=== PATIENT | male | born 1990 | race Caucasian/White ===

== ENCOUNTER → 2016-11-06 | Outpatient (CLI) | payer MEDICAID ==
[~2016-11-06] MED LIST: KEFL500C; No Historical Meds; VICO5TAB
== END ==
LOC: M OUTALCOH 12:53
PROVIDERS: ATTEND Psychiatry & Neurology Psychiatry
DX: Z03.89 Encounter for observation for other suspected diseases and conditions ruled out (principal)

== ENCOUNTER → 2017-01-29 | Outpatient (CLI) | payer MEDICAID, OTHER ==
--- NOTE | 2017-01-29 14:50 | REP ---
LEFT KNEE, FIVE VIEWS: There is no evidence of an acute fracture, dislocation or intrinsic bone disease. IMPRESSION: No fracture or dislocation. Signed by Ramiro Rudolph MD 01/29/2017 04:43 P
--- NOTE | 2017-01-29 14:52 | REP ---
RIGHT ANKLE, FOUR VIEWS: There is no evidence of an acute fracture, dislocation or intrinsic bone disease. There is lateral soft tissue swelling. The ankle mortise is anatomic. IMPRESSION: No fracture or dislocation. Signed by Ramiro Rudolph MD 01/29/2017 04:43 P
--- NOTE | 2017-01-29 14:57 | REP ---
RIGHT LOWER LEG, AP AND LATERAL: There is no evidence of an acute fracture, dislocation or intrinsic bone disease. IMPRESSION: No fracture or dislocation. Signed by Ramiro Rudolph MD 01/29/2017 04:44 P
--- NOTE | 2017-01-29 14:57 | REP ---
RIGHT FOOT, FOUR VIEWS: HISTORY: Pain. There is no acute fracture or dislocation. The joint spaces are normal in appearance. IMPRESSION: There is no acute fracture or dislocation. Signed by Jaime Barger MD 01/29/2017 03:03 P
== END ==
LOC: M LRY 13:17
PROVIDERS: ATTEND Physician Assistant
DX: M25.561 Pain in right knee (principal)

== ENCOUNTER 2017-08-21 19:21 | Emergency (ER) | payer MEDICAID, OTHER ==
[~2017-08-21] VITALS: Ht 180.3 cm; Wt 72.7 kg
[2017-08-21 19:24] VITALS: BP 134/86
[2017-08-21] MEDS ORDERED: NORCO, ANEXSIA 5/325MG TABLET (HYDROcodone/ACETAMINOPHEN) PO ONE (19:45)
[2017-08-21] MEDS ORDERED: NORCO 5/325MG TABLET (BULK FOR ED) PO ONE (20:00)
[2017-08-21] MEDS ORDERED: NORCOTAB PO (20:04)
--- NOTE | 2017-08-22 14:05 | REP ---
RIGHT SHOULDER: Three views of the right shoulder are performed. No fracture is seen. There is, however, disruption at the acromioclavicular joint. The distal clavicle is elevated above the acromion. 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 Signed by Ramiro Rudolph MD 08/22/2017 05:38 P
== END 2017-08-21 20:12 | disposition home or self-care (01) ==
LOC: M ED 19:51
DX: S43.51XA Sprain of right acromioclavicular joint, initial encounter (principal); W19.XXXA Unspecified fall, initial encounter; Y92.099 Unspecified place in other non-institutional residence as the place of occurrence of the external cause; Y93.9 Activity, unspecified; Y99.9 Unspecified external cause status; F17.200 Nicotine dependence, unspecified, uncomplicated

== ENCOUNTER 2017-11-25 15:55 | Emergency (ER) | payer SELFPAY, OTHER ==
[2017-11-25 16:39] LABS: MEAN CORPUSCULAR HEMOGLOBIN 30.5 pg (27.0-33.0); MEAN CORPUSCULAR VOLUME 89.6 fl (80.0-96.0); PLATELET COUNT, AUTOMATED 379 10^3/uL (150-450); RED BLOOD COUNT 5.84 10^6/uL (4.30-6.10); RED CELL DISTRIBUTION WIDTH 13.4 % (11.5-14.5)
[2017-11-25 16:44] LABS: HEMATOCRIT 52.3 % (42.0-52.0); HEMOGLOBIN 17.8 g/dl (14.0-18.0); SUSPECT SAMPLE POS FLAG
[2017-11-25 16:56] LABS: AMPHETAMINES LEVEL URINE POSITIVE (NEGATIVE); BARBITURATES URINE NEGATIVE (NEGATIVE); BENZODIAZEPINES URINE NEGATIVE (NEGATIVE); CANNABINOIDS URINE POSITIVE (NEGATIVE); COCAINE METABOLITE URINE NEGATIVE (NEGATIVE); METHADONE URINE NEGATIVE (NEGATIVE); OPIATES URINE NEGATIVE (NEGATIVE); PHENCYCLIDINE URINE NEGATIVE (NEGATIVE)
[2017-11-25 17:05] LABS: ALBUMIN 4.6 GM/DL (3.2-5.2); ALBUMIN/GLOBULIN RATIO 1.28 (1.00-1.93); ALKALINE PHOSPHATASE 103 U/L (45-117); ALT/SGPT 22 U/L (12-78); ANION GAP 7 MEQ/L (8-16); AST/SGOT 10 U/L (7-37); BILIRUBIN,DIRECT 0.3 MG/DL (0.0-0.2); BILIRUBIN,TOTAL 1.4 MG/DL (0.2-1.0); BLOOD UREA NITROGEN 3 MG/DL (7-18); CALCIUM LEVEL 8.8 MG/DL (8.5-10.1); CARBON DIOXIDE LEVEL 30 MEQ/L (21-32); CHLORIDE LEVEL 107 MEQ/L (98-107); CREATININE FOR GFR 0.82 MG/DL (0.70-1.30); ETHYL ALCOHOL (ETHANOL) 0.152 % (0.000-0.010); GLOMERULAR FILTRATION RATE > 60.0 (>60); GLUCOSE, FASTING 103 MG/DL (70-100); POTASSIUM SERUM 3.7 MEQ/L (3.5-5.1); SALICYLATE LEVEL 2.3 MG/DL (5.0-30.0); SODIUM LEVEL 144 MEQ/L (136-145); THYROID STIMULATING HORMONE 0.694 uIU/ML (0.358-3.740); TOTAL PROTEIN 8.2 GM/DL (6.4-8.2)
[2017-11-25 17:16] LABS: ACETAMINOPHEN LEVEL < 2.0 UG/ML (10.0-30.0)
== END 2017-11-25 18:46 | disposition home or self-care (01) ==
LOC: M ED 15:55
DX: F10.220 Alcohol dependence with intoxication, uncomplicated (principal); Y90.0 Blood alcohol level of less than 20 mg/100 ml
CPT/HCPCS: G0480

== ENCOUNTER 2018-07-26 19:57 | Emergency (ER) | payer MEDICAID, SELFPAY ==
[~2018-07-26] VITALS: Ht 180.3 cm; Wt 77.6 kg
[~2018-07-26 19:57] MED LIST changes: +NORCOTAB PO
[2018-07-26] MEDS: NALOXONE INJ 0.4 MG/1 ML VIAL (J2310) IV STA ×2 (20:11→20:15)
[2018-07-26 21:05] VITALS: BP 128/70
== END 2018-07-26 21:07 | disposition home or self-care (01) ==
LOC: M ED 19:57 → EDBD 19:57 → M ED 21:07
DX: T40.1X1A Poisoning by heroin, accidental (unintentional), initial encounter (principal); X58.XXXA Exposure to other specified factors, initial encounter; F19.10 Other psychoactive substance abuse, uncomplicated; F17.210 Nicotine dependence, cigarettes, uncomplicated

== ENCOUNTER → 2019-07-12 | Outpatient (CLI) | payer MEDICAID ==
[~2019-07-12] MED LIST changes: +HYDR-3715 PO; -NORCOTAB PO
[2019-07-12 13:15] LABS: HEMATOCRIT 44.5 % (42.0-52.0); HEMOGLOBIN 14.9 g/dl (13.5-17.5); MEAN CORPUSCULAR HEMOGLOBIN 30.7 pg (27.0-33.0); MEAN CORPUSCULAR HGB CONC 33.5 g/dl (32.0-36.5); MEAN CORPUSCULAR VOLUME 91.6 fl (80.0-96.0); PLATELET COUNT, AUTOMATED 212 10^3/uL (150-450); RED BLOOD COUNT 4.86 10^6/uL (4.30-6.10); WHITE BLOOD COUNT 6.1 10^3/uL (4.0-10.0)
[2019-07-12 14:08] LABS: ALT/SGPT 206 U/L (12-78); BILIRUBIN,TOTAL 1.9 MG/DL (0.2-1.0); BLOOD UREA NITROGEN 7 MG/DL (7-18); CALCIUM LEVEL 8.9 MG/DL (8.5-10.1); CARBON DIOXIDE LEVEL 30 MEQ/L (21-32); CHLORIDE LEVEL 104 MEQ/L (98-107); CREATININE FOR GFR 0.79 MG/DL (0.70-1.30); GLOMERULAR FILTRATION RATE > 60.0 (>60); GLUCOSE, FASTING 75 MG/DL (70-100); POTASSIUM SERUM 4.1 MEQ/L (3.5-5.1); SODIUM LEVEL 141 MEQ/L (136-145); TOTAL PROTEIN 7.2 GM/DL (6.4-8.2)
[2019-07-12 14:28] LABS: HEPATITIS B SURFACE ANTIGEN NEGATIVE (NEGATIVE)
[2019-07-12 14:56] LABS: HIV 1&2 SCREEN CENTAUR NEGATIVE (NEGATIVE)
[2019-07-12 15:04] LABS: CHLAMYDIA DNA AMPLIFICATION NEGATIVE (NEGATIVE); GC DNA AMPLIFICATION NEGATIVE (NEGATIVE); HEPATITIS C VIRUS ABY INDEX > 11.0 INDEX (<0.8)
--- NOTE | 2019-07-15 09:42 | ECGEPIP ---
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
== END ==
LOC: M LAB 12:13
PROVIDERS: ATTEND Family Medicine
DX: F11.90 Opioid use, unspecified, uncomplicated (principal)

== ENCOUNTER 2019-10-24 16:17 | Emergency (ER) | payer OTHER ==
[~2019-10-24] VITALS: Ht 180.3 cm; Wt 75.0 kg
[2019-10-24 16:17] VITALS: BP 136/69
[2019-10-24] MEDS ORDERED: IBUP-1114 PO (16:22)
== END 2019-10-24 20:45 | disposition left against medical advice (07) ==
LOC: M ED 16:17
DX: Z53.21 Procedure and treatment not carried out due to patient leaving prior to being seen by health care provider (principal)

== ENCOUNTER 2019-10-25 00:27 | Emergency (ER) | payer OTHER ==
[~2019-10-25] VITALS: Ht 180.3 cm; Wt 67.2 kg
[~2019-10-25 00:27] MED LIST changes: +IBUP-1114 PO
[2019-10-25 00:28] VITALS: BP 148/78
== END 2019-10-25 01:40 | disposition left against medical advice (07) ==
LOC: M ED 00:27
DX: Z53.21 Procedure and treatment not carried out due to patient leaving prior to being seen by health care provider (principal)

== ENCOUNTER → 2020-09-12 | Outpatient (CLI) | payer OTHER ==
[2020-09-12 11:18] LABS: HEMATOCRIT 40.2 % (42.0-52.0); HEMOGLOBIN 13.8 g/dl (13.5-17.5); MEAN CORPUSCULAR HEMOGLOBIN 31.4 pg (27.0-33.0); MEAN CORPUSCULAR HGB CONC 34.3 g/dl (32.0-36.5); MEAN CORPUSCULAR VOLUME 91.4 fl (80.0-96.0); PLATELET COUNT, AUTOMATED 204 10^3/uL (150-450); WHITE BLOOD COUNT 7.5 10^3/uL (4.0-10.0)
[2020-09-12 11:53] LABS: ALBUMIN 4.2 GM/DL (3.2-5.2); ALT/SGPT 135 U/L (12-78); BILIRUBIN,TOTAL 1.4 MG/DL (0.2-1.0); BLOOD UREA NITROGEN 12 MG/DL (7-18); CALCIUM LEVEL 8.9 MG/DL (8.5-10.1); CARBON DIOXIDE LEVEL 30 MEQ/L (21-32); CHLORIDE LEVEL 104 MEQ/L (98-107); CREATININE FOR GFR 0.88 MG/DL (0.70-1.30); GLOMERULAR FILTRATION RATE > 60.0 (>60); GLUCOSE, FASTING 89 MG/DL (70-100); POTASSIUM SERUM 3.7 MEQ/L (3.5-5.1); SODIUM LEVEL 137 MEQ/L (136-145); TOTAL PROTEIN 7.3 GM/DL (6.4-8.2)
[2020-09-12 14:09] LABS: HEPATITIS B SURFACE ANTIGEN NEGATIVE (NEGATIVE)
[2020-09-12 14:38] LABS: HIV 1&2 SCREEN CENTAUR NEGATIVE (NEGATIVE)
[2020-09-12 14:51] LABS: HEPATITIS C VIRUS ABY INDEX > 11.0 INDEX (<0.8)
--- NOTE | 2020-09-12 22:47 | ECGEPIP ---
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 No rSr' compared with 07/12. Electronically Signed on 09-12-2020 22:47:24 EST by Sean Fish
== END ==
LOC: M LAB 09:58
PROVIDERS: ATTEND Family Medicine
DX: F11.20 Opioid dependence, uncomplicated (principal)

== ENCOUNTER 2020-11-09 10:11 | Emergency (ER) | payer OTHER ==
[~2020-11-09] VITALS: Ht 180.3 cm; Wt 68.1 kg
[2020-11-09] MEDS ORDERED: METH5TA PO (10:25)
[2020-11-09] MEDS ORDERED: NS 1,000 ML IV ONE (10:45)
[2020-11-09 10:58] LABS: BASO % 0.2 % (0.0-1.0); EOS % 0.1 % (0.0-3.0); HEMATOCRIT 42.1 % (42.0-52.0); HEMOGLOBIN 14.4 g/dl (13.5-17.5); LYMPH # 1.9 10^3/uL (1.5-5.0); LYMPH % 15.9 % (24.0-44.0); MEAN CORPUSCULAR HGB CONC 34.2 g/dl (32.0-36.5); MEAN CORPUSCULAR VOLUME 90.7 fl (80.0-96.0); MONO # 0.6 10^3/uL (0.0-0.8); MONO % 4.9 % (0.0-5.0); NEUTROPHILS # 9.2 10^3/uL (1.5-8.5); NEUTROPHILS % 78.5 % (36.0-66.0); PLATELET COUNT, AUTOMATED 245 10^3/uL (150-450); RED BLOOD COUNT 4.64 10^6/uL (4.30-6.10); WHITE BLOOD COUNT 11.7 10^3/uL (4.0-10.0)
[2020-11-09 11:36] LABS: ALBUMIN 4.6 GM/DL (3.2-5.2); ALT/SGPT 175 U/L (12-78); AMYLASE 47 U/L (25-115); BILIRUBIN,DIRECT 0.4 MG/DL (0.0-0.2); BILIRUBIN,TOTAL 1.5 MG/DL (0.2-1.0); BLOOD UREA NITROGEN 10 MG/DL (7-18); CALCIUM LEVEL 9.3 MG/DL (8.5-10.1); CARBON DIOXIDE LEVEL 30 MEQ/L (21-32); CHLORIDE LEVEL 102 MEQ/L (98-107); CREATININE FOR GFR 0.84 MG/DL (0.70-1.30); GLOMERULAR FILTRATION RATE > 60.0 (>60); GLUCOSE, FASTING 117 MG/DL (70-100); LIPASE 49 U/L (73-393); POTASSIUM SERUM 3.6 MEQ/L (3.5-5.1); SODIUM LEVEL 138 MEQ/L (136-145); TOTAL PROTEIN 7.9 GM/DL (6.4-8.2)
--- NOTE | 2020-11-09 11:39 | REP ---
INDICATION: LLQ pain, h/o constipation. COMPARISON: None. TECHNIQUE: Single AP view abdomen and pelvis. FINDINGS: Moderate fecal material seen throughout the colon. No dilated bowel loops are seen and there is no evidence of bowel obstruction. No abnormal calcifications are seen. Visualized osseous structures are unremarkable. IMPRESSION: Moderate fecal retention. <Electronically signed by Ramiro Rudolph > 11/09/20 [id number]
[2020-11-09] MEDS ORDERED: GLYCERIN ADULT SUPP PR ONE (11:45)
[2020-11-09] MEDS ORDERED: MAGNESIUM CITRATE 300 ML BTL PO ONE (11:45)
[2020-11-09] MEDS ORDERED: MIRA3350 PO (11:47)
[2020-11-09] MEDS ORDERED: COLA100C5 PO (11:47)
--- NOTE | 2020-11-09 12:30 | REP ---
INDICATION: hyperbilirubinemia. COMPARISON: None. TECHNIQUE: Real-time sonographic evaluation of right upper quadrant performed. FINDINGS: The gallbladder demonstrates no evidence of intraluminal sludge or calculi, wall thickening or pericholecystic fluid. There is no intrahepatic or extrahepatic biliary dilatation, common bile duct measures 5 mm in maximum diameter. The liver demonstrates homogeneous echotexture with no gross mass. The pancreas demonstrates homogeneous echotexture with no gross mass. The right kidney demonstrates no hydronephrosis, with a normal size of 11.6 cm in length. No free fluid is seen. IMPRESSION: Negative right upper quadrant ultrasound. <Electronically signed by Ramiro Rudolph > 11/09/20 [id number]
[2020-11-09 12:59] VITALS: BP 132/74
[2020-11-09 14:35] LABS: CHLAMYDIA DNA AMPLIFICATION NEGATIVE (NEGATIVE); GC DNA AMPLIFICATION NEGATIVE (NEGATIVE)
== END 2020-11-09 13:00 | disposition home or self-care (01) ==
LOC: M ED 10:11
DX: K59.00 Constipation, unspecified (principal); R74.01 Elevation of levels of liver transaminase levels; E80.6 Other disorders of bilirubin metabolism; Z86.19 Personal history of other infectious and parasitic diseases; F41.9 Anxiety disorder, unspecified; F17.200 Nicotine dependence, unspecified, uncomplicated; F12.10 Cannabis abuse, uncomplicated

== ENCOUNTER 2020-11-28 03:20 | Emergency (ER) | payer OTHER ==
[~2020-11-28] VITALS: Ht 180.3 cm; Wt 70.1 kg
[~2020-11-28 03:20] MED LIST changes: +COLA100C5 PO; +METH5TA PO; +MIRA3350 PO
--- OUTSIDE RECORDS SUMMARY | 2020-11-28 03:27 | CCD ---
Author Author [facility] Organization [facility] Address Unknown Phone Unavailable Care Team Providers Care Soft Water Mechanic Name Role Phone Richard Gutierrez MD Unavailable Unavailable Richard Gutierrez MD Unavailable Unavailable Richard Gutierrez MD Unavailable Unavailable Richard Gutierrez MD Unavailable Unavailable Richard Gutierrez MD Unavailable Unavailable Richard Gutierrez MD Unavailable Unavailable Richard Gutierrez MD Unavailable Unavailable Richard Gutierrez MD Unavailable Unavailable Richard Gutierrez MD Unavailable Unavailable Richard Gutierrez MD Unavailable Unavailable Richard Gutierrez MD Unavailable Unavailable Richard Gutierrez MD Unavailable Unavailable Richard Gutierrez MD Unavailable Unavailable Richard Gutierrez MD Unavailable Unavailable Richard Gutierrez MD Unavailable Unavailable Richard Gutierrez MD Unavailable Unavailable Richard Gutierrez MD Unavailable Unavailable Richard Gutierrez MD Unavailable Unavailable Richard Gutierrez MD Unavailable Unavailable Richard Gutierrez MD Unavailable Unavailable Richard Gutierrez MD Unavailable Unavailable Richard Gutierrez MD Unavailable Unavailable Richard Gutierrez MD Unavailable Unavailable Richard Gutierrez MD Unavailable Unavailable Richard Gutierrez MD Unavailable Unavailable Richard Gutierrez MD Unavailable Unavailable Richard Gutierrez MD Unavailable Unavailable Richard Gutierrez MD Unavailable Unavailable Richard Gutierrez MD Unavailable Unavailable Richard Gutierrez MD Unavailable Unavailable Richard Gutierrez MD Unavailable Unavailable Richard Gutierrez MD Unavailable Unavailable Richard Gutierrez MD Unavailable Unavailable Richard Gutierrez MD Unavailable Unavailable Richard Gutierrez MD Unavailable Unavailable Richard Gutierrez MD Unavailable Unavailable Richard Gutierrez MD Unavailable Unavailable Richard Gutierrez MD Unavailable Unavailable Richard Gutierrez MD Unavailable Unavailable Richard Gutierrez MD Unavailable Unavailable Richard Gutierrez MD Unavailable Unavailable Richard Gutierrez MD Unavailable Unavailable Richard Gutierrez MD Unavailable Unavailable Richard Gutierrez MD Unavailable Unavailable Richard Gutiererz MD Unavailable Unavailable Gutierrez, Richard Whittington MD Unavailable Unavailable Gutierrez, Richard Whittington MD Unavailable Unavailable Gutierrez, D Pk MD Unavailable Unavailable Gutierrez, D Pk MD Unavailable Unavailable Gutierrez, D Pk MD Unavailable Unavailable Gutierrez, D Pk MD Unavailable Unavailable Gutierrez, D Pk MD Unavailable Unavailable Gutierrez, D Pk MD Unavailable Unavailable Gutierrez, D Pk MD Unavailable Unavailable Gutierrez, D Pk MD Unavailable Unavailable Gutierrez, D Pk MD Unavailable Unavailable Gutierrez, D Pk MD Unavailable Unavailable Gutierrez, D Pk MD Unavailable Unavailable Gutierrez, D Pk MD Unavailable Unavailable Gutierrez, D Pk MD Unavailable Unavailable Gutierrez, D Pk MD Unavailable Unavailable Gutierrez, D Pk MD Unavailable Unavailable Gutierrez, D Pk MD Unavailable Unavailable Gutierrez, D Pk MD Unavailable Unavailable Gutierrez, D Pk MD Unavailable Unavailable Gutierrez, D Pk MD Unavailable Unavailable Gutierrez, D Pk MD Unavailable Unavailable Gutierrez, D Pk MD Unavailable Unavailable Gutierrez, D Pk MD Unavailable Unavailable Gutierrez, D Pk MD Unavailable Unavailable Gutierrez, D kP MD Unavailable Unavailable Gutierrez, D Pk MD Unavailable Unavailable Gutierrez, D Pk MD Unavailable Unavailable Gutierrez, D Pk MD Unavailable Unavailable Gutierrez, D Pk MD Unavailable Unavailable Gutierrez, D Pk MD Unavailable Unavailable Gutierrez, D Pk MD Unavailable Unavailable Gutierrez, D Pk MD Unavailable Unavailable Gutierrez, D Pk MD Unavailable Unavailable Gutierrez, D Pk MD Unavailable Unavailable Gutierrez, D Pk MD Unavailable Unavailable Gutierrez, D Pk MD Unavailable Unavailable Gutierrez, D Pk MD Unavailable Unavailable Gutierrez, D Pk MD Unavailable Unavailable Gutierrez, D Pk MD Unavailable Unavailable Gutierrez, D Pk MD Unavailable Unavailable Gutierrez, D Pk MD Unavailable Unavailable Gutierrez, D Pk MD Unavailable Unavailable Gutierrez, D Pk MD Unavailable Unavailable Re-disclosure Warning The records that you are about to access may contain information from federally-assisted alcohol or drug abuse programs. If such information is present, then the following federally mandated warning applies: This information has been disclosed to you from records protected by federal confidentiality rules (42 CFR part 2). The federal rules prohibit you from making any further disclosure of this information unless further disclosure is expressly permitted by the written consent of the person to whom it pertains or as otherwise permitted by 42 CFR part 2. A general authorization for the release of medical or other information is NOT sufficient for this purpose. The Federal rules restrict any use of the information to criminally investigate or prosecute any alcohol or drug abuse patient.The records that you are about to access may contain highly sensitive health information, the redisclosure of which is protected by Article 27-F of the [place] State Public Health law. If you continue you may have access to information: Regarding HIV / AIDS; Provided by facilities licensed or operated by the [facility] Office of Mental Health; or Provided by the [facility] Office for People With Developmental Disabilities. If such information is present, then the following [facility] mandated warning applies: This information has been disclosed to you from confidential records which are protected by state law. State law prohibits you from making any further disclosure of this information without the specific written consent of the person to whom it pertains, or as otherwise permitted by law. Any unauthorized further disclosure in violation of state law may result in a fine or senior living sentence or both. A general authorization for the release of medical or other information is NOT sufficient authorization for further disc losure. Family History Family Member Name Family Member Gender Family Member Status Date o f Status Description Data Source(s) Unknown Male Problem MEDENT ([facility]) Encounters Encounter Providers Location Date Indications Data Source(s ) Outpatient [address] [place] [address], [facility] [phone] 04/12/2020 12:00:00 AM EDT eCW1 ([facility] Outpatient Attender: Pk Gutierrez MD 03/12/2020 07:53:16 PM EDT [facility] Outpatient Attender: Pk Gutierrez MD 11/01/2019 09:01:08 PM EST [facility] Medications Medication Brand Name Start Date Product Form Dose Route Admi nistrative Instructions Pharmacy Instructions Status Indications Reaction Description Data Source(s) Amoxicillin 875 MG / Clavulanate 125 MG Oral Tablet Amoxicillin-Pot Clavulanate 875-125 MG Amoxicillin-Pot Clavulanate 875-125 MG 04/12/2020 12:00:00 AM ED T 1.0 {tablet} active Amoxicillin-Pot Cla vulanate 875-125 MG eCW1 ([facility]) Ibuprofen 600 MG Oral Tablet Ibuprofen 600 MG 04/12/2020 12:00:00 AM E DT active Ibuprofen 600 MG eCW1 ([facility]) Insurance Providers Payer name Policy type / Coverage type Policy ID Covered constitution party ID Covered constitution party's relationship to elliott Policy Elliott Plan Information [facility] COMMUNITY PLAN [facility] [id number] SP [id number] [facility](MCAID) O [id number] S [id number] Managed Care - United HealthCare P [id number] S [id number] Medicaid S [id number] S [id number] UNHC COMMUNITY PLAN MCDHMO [id number] SP [id number] MEDICAID [id number] SP [id number] Managed Care [facility] Health[facility] P [id number] S [id number] [facility] Care [facility] HealthCare P [id number] S [id number] Medicaid S [id number] S [id number] [facility] Community Plan Commercial [id number] Self [id number] [place] [id number] Family Dependent [id number] [facility] Community Plan Commercial [id number] Self [id number] [place] [id number] Family Dependent [id number] [facility] Community Plan Commercial [id number] Self [id number] [place] [id number] Family Dependent [id number] [place] ([place]) Workers Compensation [id number] Self [id number] [facility] Community Plan Commercial [id number] Self [id number] [place] [id number] Family Dependent [id number] SELF PAY ONLY [id number] SP [id number] [facility] Care [facility] P [id number] S [id number] Medicaid S [id number] S [id number] MEDICAID [id number] SP [id number] SELF PAY UNAVAILABLE SP UNAVAILA BLE GMAC INS [id number] MO2 [id number] MEDICARE [id number] SP [id number] Surgeries/Procedures Procedure Description Date Indications Data Source(s) ECG ROUTINE ECG W/LEAST 12 LDS W/I&R 04/12/2020 12:00: 00 AM EDT eCW1 ([facility]) Social History Code Duration Value Status Description Data Source(s ) Smoking 04/12/2020 12:00:00 AM EDT Current Smoker completed Curre nt Smoker eCW1 ([facility]) Vital Signs ID Date Data Source UNK Name Value Range Interpretation Code Description Data Source(s) Diastolic blood pressure 78 mm[Hg] 78 mm[Hg] eCW1 ([facility]) Systolic blood pressure 133 mm[Hg] 133 mm[Hg] e CW1 ([facility]) Respiratory rate 18 /min 18 /min eCW1 ([facility]) Heart rate 97 /min 97 /min eCW1 ([facility]) Body mass index (BMI) [Ratio] 22.22 kg/m2 22.22 kg/m2 eCW1 ([facility]) Body height 70.25 [in_i] 70.25 [in_i] eCW1 ([facility]) Body weight 156 [lb_av] 156 [lb_av] eCW1 ([facility]) Patient Treatment Plan of Care Planned Activity Planned Date Details Description Data Source (s) Amoxicillin 875 MG / Clavulanate 125 MG Oral Tablet 04/12/20 12:00:00 AM EDT eCW1 (Critical access hospital) Ibuprofen 600 MG Oral Tablet 04/12/2020 12:00:00 AM EDT eCW1 ([facility])
[2020-11-28 05:16] LABS: BASO % 0.2 % (0.0-1.0); EOS % 0.2 % (0.0-3.0); HEMATOCRIT 41.6 % (42.0-52.0); HEMOGLOBIN 13.8 g/dl (13.5-17.5); LYMPH # 1.8 10^3/uL (1.5-5.0); MEAN CORPUSCULAR HEMOGLOBIN 30.1 pg (27.0-33.0); MEAN CORPUSCULAR HGB CONC 33.2 g/dl (32.0-36.5); MEAN CORPUSCULAR VOLUME 90.8 fl (80.0-96.0); MONO # 0.7 10^3/uL (0.0-0.8); MONO % 7.6 % (2.0-8.0); NEUTROPHILS # 6.2 10^3/uL (1.5-8.5); NEUTROPHILS % 70.5 % (36.0-66.0); PLATELET COUNT, AUTOMATED 204 10^3/uL (150-450); RED BLOOD COUNT 4.58 10^6/uL (4.30-6.10); WHITE BLOOD COUNT 8.7 10^3/uL (4.0-10.0)
--- OUTSIDE RECORDS SUMMARY | 2020-11-28 05:22 | CCD ---
Author Author [facility] Organization [facility] Address Unknown Phone Unavailable Care Team Providers Care Display Manager Name Role Phone Richard Gutierrez MD Unavailable [...] Unavailable Unavailable Richard Gutierrez MD Unavailable Unavailable Gutierrez, Richard Whittington MD [...] is protected by Article 27-F of the [place] State Public Health law. If you continue you may have access to information: Regarding HIV / AIDS; Provided by facilities licensed or operated by the [facility] Office of Mental Health; or Provided by the [facility] Office for People With Developmental Disabilities. If such information is present, then the following [facility] mandated warning applies: This information has [...] law may result in a fine or mcc sentence or both. A general authorization for the release of medical or other information is NOT sufficient authorization for further disc losure. Family History Family Member Name Family Member Gender Family Member Status Date o f Status Description Data Source(s) Unknown Male Problem [facility] ([facility]) Encounters Encounter Providers Location Date Indications Data Source(s ) Outpatient [address] [place] [address], [facility] [phone] 04/12/2020 12:00:00 AM EDT eCW1 ([facility]) Outpatient Attender: Pk Gutierrez MD 03/12/2020 07:53:[address] [facility] Outpatient Attender: Pk Gutierrez MD 11/01/2019 09:01:[address] [facility] Medications Medication Brand Name Start Date Product Form Dose Route Admi nistrative Instructions Pharmacy Instructions Status Indications Reaction Description Data Source(s) Amoxicillin 875 MG / Clavulanate 125 MG Oral Tablet Amoxicillin-Pot Clavulanate 875-125 MG Amoxicillin-Pot Clavulanate 875-125 MG 04/12/2020 12:00:00 AM ED T 1.0 {tablet} active Amoxicillin-Pot Cla vulanate 875-125 MG eCW1 ([facility]) Ibuprofen 600 MG Oral Tablet Ibuprofen 600 MG 04/12/2020 12:00:00 AM E DT active Ibuprofen 600 MG eCW1 ([facility]) Insurance Providers Payer name Policy type / Coverage type Policy ID Covered libertarian ID Covered libertarian's relationship to elliott Policy Elliott Plan Information [facility] [id number] SP [id number] [facility](MCAID) O [id number] S [id number] Managed Care - United HealthCare P [id number] S [id number] Medicaid S [id number] S [id number] UNHC COMMUNITY PLAN MCDHMO [id number] SP [id number] MEDICAID [id number] SP [id number] Managed Care [facility] HealthCare P [id number] S [id number] [facility] Care [facility] HealthCare P [id number] S [id number] Medicaid S [id number] S [id number] [facility] Community Plan Commercial [id number] Self [id number] [place] [id number] Family Dependent [id number] [facility] Community Plan Commercial [id number] Self [id number] [place] [id number] Family Dependent [id number] [facility] Community Plan Commercial [id number] Self [id number] [place] [id number] Family Dependent [id number] [place] ([place]) Workers Compensation [id number] Self [id number] [facility] Community Plan Commercial [id number] Self [id number] [place] [id number] Family Dependent [id number] SELF PAY ONLY [id number] SP [id number] [facility] Care [facility] P [id number] S [id number] Medicaid S [id number] S [id number] MEDICAID [id number] SP [id number] SELF PAY UNAVAILABLE SP UNAVAILA BLE GMAC INS [id number] MO2 [id number] MEDICARE [id number] SP [id number] Surgeries/Procedures Procedure Description Date Indications Data Source(s) ECG ROUTINE ECG W/LEAST 12 LDS W/I&R 04/12/2020 12:00: 00 AM EDT eCW1 ([facility]) Social History Code Duration Value Status Description Data Source(s ) Smoking 04/12/2020 12:00:00 AM EDT Current Smoker completed Curre nt Smoker eCW1 ([facility]) Vital Signs ID Date Data Source UNK Name Value Range Interpretation Code Description Data Source(s) Diastolic blood pressure 78 mm[Hg] 78 mm[Hg] eCW1 ([facility]) Systolic blood pressure 133 mm[Hg] 133 mm[Hg] e CW1 ([facility]) Respiratory rate 18 /min 18 /min eCW1 ([facility]) Heart rate 97 /min 97 /min eCW1 ([facility]) Body mass index (BMI) [Ratio] 22.22 kg/m2 22.22 kg/m2 eCW1 ([facility]) Body height 70.25 [in_i] 70.25 [in_i] eCW1 ([facility]) Body weight 156 [lb_av] 156 [lb_av] eCW1 ([facility]) Patient Treatment Plan of Care Planned Activity Planned Date Details Description Data Source (s) Amoxicillin 875 MG / Clavulanate 125 MG Oral Tablet 04/12/20 12:00:00 AM EDT eCW1 ([facility]) Ibuprofen 600 MG Oral Tablet 04/12/2020 12:00:00 AM EDT eCW1 ([facility])
[2020-11-28 05:37] LABS: AMPHETAMINES LEVEL URINE NEGATIVE (NEGATIVE); BARBITURATES URINE NEGATIVE (NEGATIVE); BENZODIAZEPINES URINE NEGATIVE (NEGATIVE); CANNABINOIDS URINE POSITIVE (NEGATIVE); COCAINE METABOLITE URINE NEGATIVE (NEGATIVE); METHADONE URINE POSITIVE (NEGATIVE); OPIATES URINE NEGATIVE (NEGATIVE); PHENCYCLIDINE URINE NEGATIVE (NEGATIVE)
[2020-11-28 05:41] LABS: ALBUMIN 4.3 GM/DL (3.2-5.2); ALT/SGPT 159 U/L (12-78); BLOOD UREA NITROGEN 10 MG/DL (7-18); CALCIUM LEVEL 8.7 MG/DL (8.5-10.1); CARBON DIOXIDE LEVEL 32 MEQ/L (21-32); CHLORIDE LEVEL 104 MEQ/L (98-107); CREATININE FOR GFR 0.75 MG/DL (0.70-1.30); GLOMERULAR FILTRATION RATE > 60.0 (>60); GLUCOSE, FASTING 118 MG/DL (70-100); MAGNESIUM LEVEL 2.1 MG/DL (1.8-2.4); POTASSIUM SERUM 3.7 MEQ/L (3.5-5.1); SODIUM LEVEL 138 MEQ/L (136-145); TOTAL PROTEIN 7.5 GM/DL (6.4-8.2)
[2020-11-28] MEDS ORDERED: KETOROLAC TROMETHAMINE 10 MG TAB PO ONE (06:05)
[2020-11-28 06:15] VITALS: BP 122/70
[2020-11-28] MEDS ORDERED: Holter Monitor (06:26)
--- NOTE | 2020-11-28 07:07 | REPVR ---
PROCEDURE INFORMATION: Exam: XR Chest Exam date and time: 11/28/2020 4:11 AM Age: 30 years old Clinical indication: Other: Palpitations; Additional info: Palpitations, fever, cough TECHNIQUE: Imaging protocol: XR of the chest Views: 1 view. COMPARISON: No relevant prior studies available. FINDINGS: Lungs: The lungs are well inflated, possibly mildly hyperinflated. There is no significant consolidation. Pleural spaces: No pleural effusions or pneumothorax identified. Heart/Mediastinum: The cardiomediastinal silhouette is within normal size limits. Bones/joints: Unremarkable. IMPRESSION: Well inflated to mildly hyperinflated lungs. No evidence of pneumonia. Electronically signed by: Kymberly Montiel On 11/28/2020 07:07:59 AM
--- NOTE | 2020-11-28 09:40 | ECGEPIP ---
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
== END 2020-11-28 07:44 | disposition home or self-care (01) ==
LOC: M ED 03:20
DX: R00.2 Palpitations (principal); K02.9 Dental caries, unspecified; K08.89 Other specified disorders of teeth and supporting structures; R53.1 Weakness; R11.2 Nausea with vomiting, unspecified; F19.11 Other psychoactive substance abuse, in remission; F12.10 Cannabis abuse, uncomplicated; F17.200 Nicotine dependence, unspecified, uncomplicated

== ENCOUNTER → 2020-11-29 | Outpatient (CLI) | payer OTHER ==
[~2020-11-29] MED LIST changes: +Holter Monitor
--- NOTE | 2020-12-02 19:18 | HOLTMON ---
[facility] Test Date: 2020-11-29 Pat Name: PARVEZ NAVARRO Department: Room: - Gender: Male Derrick Follower: maura : 1990 Requested By: CORINA Johns Order Number: [id number] Reading MD: Joe Shahid Interpretive Statements 22 hours and 17 minutes were amenable to analysis. Baseline sinus rhythm with normal AV conduction and narrow QRS complex. 2 PVC's and 5 PAC's. No pauses, no atrial fibrillation. No reported symptoms. Normal Holter monitor. Electronically Signed on 12-02-2020 19:18:47 EST by Joe Shahid
== END ==
LOC: M EKG 13:44
PROVIDERS: ATTEND Emergency Medicine
DX: R00.2 Palpitations (principal)

== ENCOUNTER → 2021-09-23 | Outpatient (CLI) | payer OTHER ==
[2021-09-23 14:01] LABS: HEMATOCRIT 43.3 % (42.0-52.0); HEMOGLOBIN 14.7 g/dl (13.5-17.5); MEAN CORPUSCULAR HEMOGLOBIN 30.7 pg (27.0-33.0); MEAN CORPUSCULAR HGB CONC 33.9 g/dl (32.0-36.5); MEAN CORPUSCULAR VOLUME 90.4 fl (80.0-96.0); PLATELET COUNT, AUTOMATED 227 10^3/uL (150-450); RED BLOOD COUNT 4.79 10^6/uL (4.30-6.10); WHITE BLOOD COUNT 7.8 10^3/uL (4.0-10.0)
[2021-09-23 14:44] LABS: ALT/SGPT 65 U/L (12-78); BILIRUBIN,TOTAL 1.5 MG/DL (0.2-1.0); BLOOD UREA NITROGEN 13 MG/DL (7-18); CARBON DIOXIDE LEVEL 31 MEQ/L (21-32); CHLORIDE LEVEL 104 MEQ/L (98-107); CREATININE FOR GFR 0.87 MG/DL (0.70-1.30); GLOMERULAR FILTRATION RATE > 60.0 (>60); GLUCOSE, FASTING 77 MG/DL (70-100); POTASSIUM SERUM 4.9 MEQ/L (3.5-5.1); SODIUM LEVEL 140 MEQ/L (136-145); TOTAL PROTEIN 6.9 GM/DL (6.4-8.2)
[2021-09-23 14:54] LABS: HEPATITIS B SURFACE ANTIGEN NEGATIVE (NEGATIVE)
[2021-09-23 15:23] LABS: HIV 1&2 SCREEN CENTAUR NEGATIVE (NEGATIVE)
[2021-09-23 16:11] LABS: GC DNA AMPLIFICATION NEGATIVE (NEGATIVE)
[2021-09-23 16:27] LABS: HEPATITIS C VIRUS ABY INDEX > 11.0 INDEX (<0.8)
--- NOTE | 2021-09-24 19:35 | ECGEPIP ---
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
== END ==
LOC: M EKG 12:53
PROVIDERS: ATTEND Family Medicine
DX: F11.20 Opioid dependence, uncomplicated (principal)

== ENCOUNTER → 2024-10-20 | Outpatient (CLI) | payer OTHER ==
[2024-10-20 09:25] LABS: MEAN CORPUSCULAR HEMOGLOBIN 31.3 pg (27.0-33.0); MEAN CORPUSCULAR HGB CONC 35.1 g/dl (32.0-36.5); MEAN CORPUSCULAR VOLUME 88.9 fl (80.0-96.0); PLATELET COUNT, AUTOMATED 203 10^3/uL (150-450); RED BLOOD COUNT 4.96 10^6/uL (4.30-6.10); WHITE BLOOD COUNT 7.3 10^3/uL (4.0-10.0)
[2024-10-20 09:27] LABS: HEMATOCRIT 44.1 % (42.0-52.0); HEMOGLOBIN 15.5 g/dl (13.5-17.5)
[2024-10-20 09:46] LABS: ALBUMIN 4.1 G/DL (3.2-5.2); ALKALINE PHOSPHATASE 79 U/L (40-129); ALT/SGPT 67 U/L (7.0-40); AST/SGOT 49 U/L (<34); BILIRUBIN,TOTAL 0.9 MG/DL (0.3-1.2); BLOOD UREA NITROGEN 16 MG/DL (9-23); CALCIUM LEVEL 9.4 MG/DL (8.5-10.1); CARBON DIOXIDE LEVEL 31 MMOL/L (20-31); CHLORIDE LEVEL 106 MMOL/L (98-107); CREATININE FOR GFR 0.75 MG/DL (0.70-1.30); GLOMERULAR FILTRATION RATE > 60.0 (>60); GLUCOSE, FASTING 91 MG/DL (60-100); POTASSIUM SERUM 4.1 MMOL/L (3.5-5.1); SODIUM LEVEL 142 MMOL/L (136-145); TOTAL PROTEIN 7.3 G/DL (5.7-8.2)
[2024-10-20 10:19] LABS: HIV 1&2 SCREEN NEGATIVE (NEGATIVE)
[2024-10-20 11:06] LABS: GC DNA AMPLIFICATION NEGATIVE (NEGATIVE)
[2024-10-20 12:46] LABS: HEPATITIS C VIRUS ABY INDEX > 11.00 INDEX (<0.8)
[2024-10-23 16:17] LABS: HCV RNA log10 7.34 Log IU/mL (NOT DETECTED)
== END ==
LOC: M LAB 08:12
PROVIDERS: ATTEND Family Medicine
DX: F11.20 Opioid dependence, uncomplicated (principal)